=== PATIENT | male | born 1960 | race African-American/Black ===

== ENCOUNTER 2023-03-05 13:01 | Inpatient (IN) | payer OTHER ==
[2023-03-05 14:16] LABS: BASOPHILS ABSOLUTE AUTO 0.02 K/mm3 (0.00-0.23); BASOPHILS PERCENT AUTO 0 % (0-2); EOSINOPHILS ABSOLUTE AUTO 0.07 K/mm3 (0.00-0.68); EOSINOPHILS PERCENT AUTO 1 % (0-6); Hematocrit 43.4 % (37.0-53.0); Hemoglobin 13.9 g/dL (13.5-17.5); IMMATURE GRAN ABSOLUTE AUTO 0.01 K/mm3 (0.00-0.10); IMMATURE GRAN PERCENT AUTO 0 % (0-1); LYMPHOCYTES ABSOLUTE AUTO 1.43 K/mm3 (0.84-5.20); LYMPHOCYTES PERCENT AUTO 29 % (21-46); MONOCYTES ABSOLUTE AUTO 0.69 K/mm3 (0.16-1.47); MONOCYTES PERCENT AUTO 14 % (4-13); Mean Corpuscular HGB 32.2 pg (26.0-34.0); Mean Corpuscular Volume 101 fL (80-100); Mean Platelet Volume 11.3 fL (9.1-12.4); NEUTROPHILS ABSOLUTE AUTO 2.67 K/mm3 (1.96-9.15); NEUTROPHILS PERCENT AUTO 55 % (41-73); Platelet Count 239 K/mm3 (150-400); RDW Coefficient Variation 16.3 % (11.7-14.2); RDW Standard Deviation 61.1 fL (35.1-46.3); Red Blood Cell Count 4.32 M/mm3 (4.30-5.90); White Blood Cell Count 4.89 K/mm3 (4.00-11.30)
[2023-03-05 15:10] LABS: Albumin, Blood 3.8 g/dL (3.4-5.0); Albumin/Globulin Ratio 1.2 (0.8-1.8); Bilirubin, Total 0.7 mg/dL (0.1-1.0); Bun/Creatinine Ratio 18.9 (12.0-20.0); Calcium, Blood 8.5 mg/dL (8.5-10.1); Creatinine, Blood 0.95 mg/dL (0.60-1.20); Globulin, Blood 3.2 g/dL (2.2-4.0); Potassium, Blood 4.2 mmol/L (3.5-5.5)
--- NOTE | 2023-03-05 18:04 | NUR ---
PT CHART REVIEWED FOR ADMISSION
[2023-03-05 19:00] VITALS: BP 99/43
[2023-03-05 20:03] VITALS: BP 112/72
[2023-03-06] VITALS (8 sets, daily range): BP systolic 100–112; BP diastolic 66–78
--- NOTE | 2023-03-06 04:38 | NUR ---
SHIFT HAS BEEN UNREMARKABLE. ADMISSION ASSESSMENT COMPLETED. AOX4, PLEASANT, COOPERATIVE WITH CARE. ROOM AIR. NO PAIN REPORTED. TELE ON THROUGH SHIFT. ONE 5 BEAT RUN OF V-TACH EARLY THIS MORNING. PT WAS RESTING COMFORTABLY AT TIME, DENIED ANY PAIN OR CHANGES AND VITALS WERE WNL. NO OTHER EVENTS THUS FAR. HAS BEEN RUNNING ALYSSA-NSR. PO INTAKE GOOD. INDEPENDENT WITHIN ROOM. HAS SLEPT THROUGH MUCH OF SHIFT AFTER MED PASS AND ASSESSMENT. CALLS APPROPRIATELY. BED LOCKED IN LOWEST POSITION. CALL LIGHT LEFT WITHIN REACH.
--- NOTE | 2023-03-06 06:26 | NUR ---
CALL FROM TELE MONITOR THAT PT HAD A SECOND RUN OF V-TACH BEATS. VITALS TAKEN AND REMAIN WNL. NO CHANGE IN PT CONDITION. CALLED TO NOTIFY HOSPITALIST DR. ZURITA OF BOTH RUNS OF V-TACH. HOSPITALIST REPLIED "SOUNDS GOOD". NO ORDERS AT THIS TIME.
[2023-03-06 06:30] LABS: Bun/Creatinine Ratio 16.8 (12.0-20.0); Calcium, Blood 8.3 mg/dL (8.5-10.1); Creatinine, Blood 0.95 mg/dL (0.60-1.20); Potassium, Blood 3.7 mmol/L (3.5-5.5)
[2023-03-06] MEDS ORDERED: ASPI81CH PO (18:42)
[2023-03-06] MEDS ORDERED: CLOP75 PO (18:43)
[2023-03-06] MEDS ORDERED: METO25ER PO (18:43)
[2023-03-06] MEDS ORDERED: ATOR80 PO (18:44)
[2023-03-06] MEDS ORDERED: ENTRESTO 24 MG1 EACH PO (18:45)
[2023-03-06] MEDS ORDERED: NITR.4SL SL (18:45)
--- NOTE | 2023-03-06 19:00 | NUR ---
PATIENT IS ALERT ANND ORIENTED. HE IS A POOR HISTORIAN AND DOESNT SHOW A GOOD UNDERSTANDING OF HIS MEDICAL ISSUES. PATIENT'S FAMILY VISITED [facility] AND BROUGHT PICTURES OF HIS HOME MEDICATIONS. THIS RN COMPLETED THE HOME MED REC THIS EVENING. THE PATIENT HAS TELE IN PLACE. HE WALKED OUTSIDE A COUPLE TIMES TODAY AND WENT OFF TELE EVEN AFTER BEING REPEATEDLY ASKED NOT TO LEAVE THE BUILDING WITH THE TELEMETRY. DR. NAPOLES CONSULTED THIS AFTERNOON. PATIENT WAS ONCE AGAIN THIS EVENING REMINDED TO NOT GO OUTSIDE WITH THE TELEMETRY, HE SAID HE UNDERSTOOD.
--- NOTE | 2023-03-06 20:24 | NUR ---
PT OUT OF RANGE OF TELEMETRY IT WAS REPORTED TO ME THAT THIS PATIENT LEFT HOSPITAL GROUNDS ON PREVIOUS SHIFT. I DID INFORM HIM THAT HE WAS NOT ALLOWED TO LEAVE THE FLOOR WHEN ON TELEMETRY. I DID INFORM HIM OF OUR POLICIES. HE AGREED TO COOPERATE. HE DID LEAVE THE FLOOR. CHARGE INFORMED
[2023-03-07 04:06] VITALS: BP 114/90
--- NOTE | 2023-03-07 04:56 | NUR ---
SHIFT SUMMARY ADMITTED FOR CHF/SOB. FULL CODE. VISITING FROM [place]. HOPING TO DC TODAY. WE ARE DIURESING HIM AND STARTING METOPROLOL TODAY. TELEMETRY: NSR @ 71 BPM. CPAP @ HS, SOMETIMES NONCOMPLIANT WITH THIS. ICD IN PLACE, HE DENIES SHOCKS. ECHO SHOWS EF OF 15-20%. DR. MARROQUIN IS CONSULT CARDIOLOGY. HX OF CHF, CAD, CABG. HE HAS HAD PREVIOUS RUNS OF VTACH AND PAUSES ON TELEMETRY, NO EVENTS REPORTED THIS SHIFT. HE HAS TOOTH PAIN. MEDICATED WITH TYLENOL
[2023-03-07 07:03] LABS: Anion Gap 6 mmol/L (6-16); Blood Urea Nitrogen 15 mg/dL (8-24); Bun/Creatinine Ratio 18.1 (12.0-20.0); CHOL/HDL RATIO 3.4; CO2, Blood 25 mmol/L (21-32); Calcium, Blood 8.7 mg/dL (8.5-10.1); Chloride, Blood 108 mmol/L (98-108); Cholesterol 100 mg/dL (50-200); Creatinine, Blood 0.83 mg/dL (0.60-1.20); Glomerular Filtration Rate 99 (60-); Glucose, Blood 124 mg/dL (70-99); HDL Cholesterol 29 mg/dL (>39); Low Density Lipoprotein Chol 57 mg/dL (0-110); Magnesium, Blood 1.9 mg/dL (1.6-2.4); Potassium, Blood 3.8 mmol/L (3.5-5.5); Sodium, Blood 139 mmol/L (136-145); Triglycerides 70 mg/dL (30-160); Very Low Density Lipoprot Chol 14 mg/dL (6-32)
[2023-03-07 07:24] VITALS: BP 112/74
[2023-03-07] MEDS ORDERED: FURO40 PO (10:29)
--- NOTE | 2023-03-07 13:01 | NUR ---
DISCHARGE NOTE; PT DISCHARGED TO HOME WITH HIS , PICKED UP BY HIS FAMILY. BOTH IV'S REMOVED. TELE RETURNED AND REMOVED. DISCHARGE PAPERWORK AND EDUCATIONS PROVIDED. MEDICATIONS FAXED TO THE PHARMACY OF HIS CHOICE. FIRE SAFETY PROTOCOLS AND PROCEDURES ACKNOWLEDGE. NO ISSUES THE PT WAS ON RA.
== END 2023-03-07 12:59 | disposition home or self-care (01) | DRG 291 ==
LOC: ER 13:01 → MEDS 13:02
PROVIDERS: Family Medicine; Nurse Practitioner Acute Care; Physician Assistant; ADMIT Internal Medicine
DX: I11.0 Hypertensive heart disease with heart failure (principal); I50.21 Acute systolic (congestive) heart failure; I47.20 Ventricular tachycardia, unspecified; I25.10 Atherosclerotic heart disease of native coronary artery without angina pectoris; I44.7 Left bundle-branch block, unspecified; G47.33 Obstructive sleep apnea (adult) (pediatric); F17.210 Nicotine dependence, cigarettes, uncomplicated; Z95.1 Presence of aortocoronary bypass graft; Z95.0 Presence of cardiac pacemaker; Z99.89 Dependence on other enabling machines and devices; Z71.6 Tobacco abuse counseling
CPT/HCPCS: 36415; 71046; 71260; 80048; 80053; 80061; 83735; 83880; 84484; 85025; 85379; 93005; 93010; 94660; 94762; 96372; 96374; 96376; 99285-25; A9270; C8929; G0378; J1650; J1940; Q9957; Q9967